=== PATIENT | male | born 1990 | race Caucasian/White ===

== ENCOUNTER 2017-02-15 22:47 | Emergency (ER) | payer OTHER ==
[2017-02-15] MEDS ORDERED: Ondansetron INJ* 2 MG/ML VIAL IV ONE (23:45)
[2017-02-15] MEDS ORDERED: NS 0.9% 1000 ML* 1,000 ML IV ONE (23:45)
[2017-02-15] MEDS ORDERED: Ketorolac INJ* 30 MG/ML 1 ML VIAL IV PUSH ONE (23:51)
--- NOTE | 2017-02-16 00:01 | ED ---
GI/ HPI - HPI Summary HPI Summary: 26M presents with n/v/d today. He states that is started at 1pm today with nausea. He states shortly after he develop diarrhea. He has tried pedialyte without relief. He has generalized abdominal pain. He denies anyone else being sick. He denies any recent antibiotic usage. He states his stool is mostly watery. He denies any cough, sore throat, or sinus congestion. He denies eating anything different. no blood in his stool. He denies any fever. He denies any dysuria, hematuria, urgency, or frequency. He has not taken anything for pain. He states that he feels dehydrated. He denies any previous abdominal surgeries. - History of Current Complaint Chief Complaint: EDNauseaVomitDiarrh Time Seen by Provider: 02/15/17 23:45 Stated Complaint: VOMITING/DIARRHEA Pain Intensity: 7 - Allergy/Home Medications Allergies/Adverse Reactions: Allergies Allergy/AdvReac Type Severity Reaction Status Date / Time No Known Allergies Allergy Verified 02/15/17 22:53 PMH/Surg Hx/FS Hx/Imm Hx Endocrine/Hematology History: Denies: Hx Anticoagulant Therapy Cardiovascular History: Denies: Hx Hypertension Infectious Disease History: No Infectious Disease History: Denies: Traveled Outside the [place] in Last 30 Days - Family History Known Family History: Negative: Diabetes Review of Systems Negative: Fever Negative: Chest Pain Negative: Shortness Of Breath Positive: Abdominal Pain, Vomiting, Diarrhea, Nausea All Other Systems Reviewed And Are Negative: Yes Physical Exam Triage Information Reviewed: Yes Vital Signs On Initial Exam: Initial Vitals Temp Pulse Resp BP Pulse Ox 97.6 F 92 16 145/74 99 02/15/17 22:50 02/15/17 22:50 02/15/17 22:50 02/15/17 22:50 02/15/17 22:50 Vital Signs Reviewed: Yes Appearance: Positive: Well-Appearing Skin: Positive: Warm, Dry Head/Face: Positive: Normal Head/Face Inspection Eyes: Positive: Normal, EOMI, GILBERTO, Conjunctiva Clear ENT: Positive: Normal ENT inspection, Pharynx normal, TMs normal Respiratory/Lung Sounds: Positive: Clear to Auscultation, Breath Sounds Present Cardiovascular: Positive: Normal, RRR Abdomen Description: Positive: Soft, Other: - mild diffuse tenderness Bowel Sounds: Positive: Present Musculoskeletal: Positive: Normal Neurological: Positive: Normal Psychiatric: Positive: Normal Diagnostics - Vital Signs Vital Signs Temp Pulse Resp BP Pulse Ox 02/15/17 22:50 97.6 F 92 16 145/74 99 - Laboratory Result Diagrams: 02/16/17 00:10 02/16/17 00:10 Lab Statement: Any lab studies that have been ordered have been reviewed, and results considered in the medical decision making process. Re-Evaluation - Re-Evaluation First Eval Re-Evaluation Time: 01:04 Change: Improved Comment: feeling better after liter of fluids and zofran and toradol. will give another liter as still nauseous GIGU Course/Dx - Course Course Of Treatment: 26M presents with n/v/d today. He states that is started at 1pm today with nausea. He states shortly after he develop diarrhea. He has tried pedialyte without relief. He has generalized abdominal pain. He denies anyone else being sick. He denies any recent antibiotic usage. He states his stool is mostly watery. He denies any cough, sore throat, or sinus congestion. He denies eating anything different. no blood in his stool. He denies any fever. He has not taken anything for pain. He states that he feels dehydrated. on exam has diffuse abdominal tenderness mild. labs wbc 14. crp normal. bilirubin elevated but LFT normal. on reexam feeling better and abdomen soft nontender. will discharge with zofran. patient understand and agrees with plan. - Diagnoses Differential Diagnoses - Male: Gastroenteritis (Bacterial), Gastroenteritis ( Viral), Urinary Tract Infection Provider Diagnoses: Abdominal pain, Nausea vomiting and diarrhea Discharge - Discharge Plan Condition: Good Disposition: HOME Prescriptions: Ondansetron ODT TAB* [Zofran 4 MG Odt TAB*] 4 mg PO Q6H PRN #20 tab.odt PRN Reason: Nausea Patient Education Materials: Acute Nausea and Vomiting (ED) Referrals: [facility] – [place] [facility] REFERRAL [Outside] Additional Instructions: Can take Zofran every 6 hours as needed for nausea Drink small amounts of fluid as tolerated When able to eat follow BRAT diet: Bananas, rice, applesauce, toast Take ibuprofen or Tylenol for pain as needed every 6 hours Follow up with primary within 5 days Return to ED if develop fever that does not respond to Tylenol or ibuprofen, severe abdominal pain, or any new or worsening symptoms
[2017-02-16 00:34] LABS: ABS Basophils 0 10^3/ul (0-0.2); ABS Eosinophils 0 10^3/ul (0-0.6); ABS Lymphocytes 0.7 10^3/ul (1.0-4.8); ABS Monocytes 0.3 10^3/ul (0-0.8); ABS Neutrophils 13.4 10^3/ul (1.5-7.7); ABS Nucleated RBC 0 10^3/ul; Eosinophil % 0 % (0-6); Hematocrit 46 % (42-52); Hemoglobin 15.8 g/dl (14.0-18.0); Lymphocyte % 4.9 % (25-47); Mean Corpuscular HGB Conc 34 g/dl (31-36); Mean Corpuscular Hemoglobin 30 pg (27-31); Mean Corpuscular Volume 88 fL (80-94); Mean Platelet Volume 9 um3 (7.4-10.4); Nucleated Red Blood Cells % 0; Platelet Count 181 10^3/ul (150-450); Red Blood Count 5.26 10^6/ul (4.0-5.4); Red Cell Distribution Width 13 % (10.5-15); White Blood Count 14.4 10^3/ul (3.5-10.8)
[2017-02-16] MEDS ORDERED: O ndansetron ODT 4MG 2TAB PRPK 4 MG PAK PO ONE (01:01)
[2017-02-16] MEDS ORDERED: NS 0.9% 1000 ML* 1,000 ML IV ONE (01:01)
[2017-02-16 01:56] LABS: Urine Appearance Cloudy; Urine Blood Negative (Negative); Urine Color Yellow; Urine Ketones 2+ (Negative); Urine Protein 2+(100 mg/dL) (Negative); Urine Specific Gravity 1.031 (1.010-1.030); Urine Urobilinogen Negative (Negative)
[2017-02-16 04:01] VITALS: BP 123/86
== END 2017-02-16 04:01 | disposition home or self-care (01) ==
LOC: ED 22:47
DX: R11.2 Nausea with vomiting, unspecified (principal); R10.9 Unspecified abdominal pain; R19.7 Diarrhea, unspecified
CPT/HCPCS: 36415; 80053; 81003; 81015; 83690; 85025; 86141; 96361; 96374; 96375; 99283; J1885; J2405

== ENCOUNTER 2017-07-21 12:32 | Emergency (ER) | payer OTHER ==
[2017-07-21] MEDS ORDERED: Ondansetron ODT TAB* 4 MG PO ONE (12:46)
[2017-07-21] MEDS ORDERED: Ondansetron ODT TAB* 4 MG ONE (12:47)
[2017-07-21 13:48] LABS: ABS Basophils 0 10^3/ul (0-0.2); ABS Eosinophils 0 10^3/ul (0-0.6); ABS Lymphocytes 0.7 10^3/ul (1.0-4.8); ABS Monocytes 0.4 10^3/ul (0-0.8); ABS Neutrophils 10.4 10^3/ul (1.5-7.7); ABS Nucleated RBC 0 10^3/ul; Eosinophil % 0 % (0-6); Hematocrit 48 % (42-52); Hemoglobin 16.5 g/dl (14.0-18.0); Lymphocyte % 6.1 % (25-47); Mean Corpuscular HGB Conc 34 g/dl (31-36); Mean Corpuscular Hemoglobin 30 pg (27-31); Mean Corpuscular Volume 88 fL (80-94); Mean Platelet Volume 9.8 um3 (7.4-10.4); Nucleated Red Blood Cells % 0; Platelet Count 177 10^3/ul (150-450); Red Blood Count 5.49 10^6/ul (4.0-5.4); Red Cell Distribution Width 13 % (10.5-15); White Blood Count 11.4 10^3/ul (3.5-10.8)
[2017-07-21 13:56] LABS: INR 0.98 (0.77-1.02)
[2017-07-21 14:04] LABS: EGFR Non-African American 82.4 (>60)
[2017-07-21] MEDS ORDERED: Metoclopramide IV* 5 MG/ML 2 ML VIAL IV ONE (14:43)
[2017-07-21] MEDS ORDERED: NS 0.9% 1000 ML* 2,000 ML IV ONE (14:47)
[2017-07-21] MEDS ORDERED: Pantoprazole IV* 40 MG IV ONE (14:48)
[2017-07-21] MEDS ORDERED: Ketorolac INJ* 30 MG/ML 1 ML VIAL IV PUSH ONE (14:48)
[2017-07-21] MEDS ORDERED: Iohexol 300* (CONTRAST) 10 ML SDV IV SCH (14:59)
[2017-07-21 15:28] LABS: Urine Appearance Cloudy; Urine Blood 1+ (Negative); Urine Color Yellow; Urine Ketones Trace (Negative); Urine Protein 1+(30 mg/dL) (Negative); Urine Specific Gravity 1.025 (1.010-1.030); Urine Urobilinogen Negative (Negative)
--- NOTE | 2017-07-21 16:29 | RAD ---
HISTORY: Right upper quadrant pain and elevated T bilirubin COMPARISONS: None TECHNIQUE: Multiple transverse and longitudinal ultrasound images were obtained of the right upper quadrant. FINDINGS: LIVER: The liver is normal in dimensions and echogenicity. Normal hepatic and portal venous blood flow is duplicated with color flow imaging. There is no gross intrahepatic biliary duct dilatation. GALLBLADDER AND EXTRAHEPATIC BILIARY DUCT: The gallbladder is normal in appearance without intraluminal stones or other soft tissue masses. There is no pericholecystic fluid or gallbladder wall thickening. The common bile duct measures a maximum diameter of 3 mm. PANCREAS: The portions of the pancreas not obscured by bowel gas are normal in appearance. RIGHT KIDNEY: The right kidney is normal in size, morphology and echogenicity. AORTA AND IVC: The visualized portions are normal in appearance and not pathologically dilated. IMPRESSION: Normal ultrasound of the right upper quadrant.
--- NOTE | 2017-07-21 17:10 | RAD ---
INDICATION: Periumbilical abdominal pain. Abdominal pain and diarrhea. COMPARISON: July 21, 2017 RIGHT upper quadrant ultrasound. TECHNIQUE: Multidetector CT images were obtained from the lung bases to the ischial tuberosities with 85 mL Omnipaque 300 IV and oral contrast. Multiplanar reformation. REPORT: Unremarkable visualized inferior thorax. Focal region of fatty infiltration of the LEFT medial hepatic segment without concern. No CT abnormality of the gallbladder, pancreas, spleen. Negative for CT abnormality of the upper GI, small bowel, or medially directed appendix. Unremarkable colon. Negative for ascites, free air, hernias. Normal adrenal glands. Small hypodense renal cortical lesions most consistent with benign cysts although too small to definitively characterize. No suspicious focal renal lesions or hydronephrosis. Symmetric nephrograms and pyelograms. Unremarkable nondilated ureters and partially distended urinary bladder. Unremarkable visualized male urogenital structures. Negative for lymphadenopathy. Normal diameter abdominal aorta and iliac arteries. Physiologic distention of the IVC. Negative for suspicious osseous lesions. IMPRESSION: Normal appendix documented. No acute abdominal pelvic pathologic process evident.
[2017-07-21] MEDS ORDERED: Ondansetron INJ* 2 MG/ML VIAL IV ONE (17:26)
[2017-07-21] MEDS ORDERED: Hyoscyamine TAB* 0.125 MG PO ONE (19:53)
[2017-07-21] MEDS ORDERED: oxyCODONE/Acetamin 5/325 MG* TAB PO ONE (19:54)
[2017-07-21 20:35] VITALS: BP 148/74
--- NOTE | 2017-07-22 00:28 | ED ---
Nely Wilkerson Emily, scribed for Carolina Martinez MD on 07/21/17 at 1504 . GI/ HPI - HPI Summary HPI Summary: This patient is a 26 year old M presenting to [facility] with a chief complaint of sudden vomiting (with "chunks that look like skin) that began on 07/19/2017 at 0400. The patient reports that the symptoms worsened by two times this morning. The patient rates the pain 7/10 in severity. Symptoms aggravated by nothing. Symptoms alleviated by nothing. Patient reports central abd pain, nausea, watery diarrhea (yellow-brown), and rash on chest (from heating pad). Patient denies hematuria and hematochezia. - History of Current Complaint Chief Complaint: EDNauseaVomitDiarrh Time Seen by Provider: 07/21/17 12:46 Stated Complaint: DEHYDRATION Hx Obtained From: Patient Onset/Duration: Started Days Ago, Still Present, Worse Since - This morning Severity: Moderate Current Severity: Moderate Pain Intensity: 7 Associated Signs and Symptoms: Positive: Other: - Positive central abd pain, nausea, watery diarrhea (yellow-brown), and rash on chest (from heating pad). Negative hematuria and hematochezia. Aggravating Factor(s): Nothing Alleviating Factor(s): Nothing - Allergy/Home Medications Allergies/Adverse Reactions: Allergies Allergy/AdvReac Type Severity Reaction Status Date / Time No Known Allergies Allergy Verified 07/21/17 12:41 PMH/Surg Hx/FS Hx/Imm Hx Previously Healthy: Yes Endocrine/Hematology History: Denies: Hx Anticoagulant Therapy, Hx Diabetes Cardiovascular History: Denies: Hx Hypertension - Surgical History Surgery Procedure, Year, and Place: tonsillectomy, labrum repair Hx Anesthesia Reactions: No Infectious Disease History: No Infectious Disease History: Denies: Traveled Outside the [place] in Last 30 Days - Family History Known Family History: Positive: Hypertension, Diabetes, Other - Negative gallbladder issues - Social History Occupation: Employed Full-time Lives: With Family Alcohol Use: None Hx Substance Use: No Substance Use Type: Reports: None Hx Tobacco Use: No Smoking Status (MU): Never Smoked Tobacco Review of Systems Positive: Abdominal Pain, Vomiting, Diarrhea, Nausea, Other - Negative hematochezia Negative: hematuria Positive: Rash All Other Systems Reviewed And Are Negative: Yes Physical Exam - Summary Physical Exam Summary: Appearance: ill-appearing, sever pain distress, thin Skin: Warm, slightly jaundiced, dry, faint macular erythematous rash on chest which patient attributes to heating pad Head: Normal Head/Face inspection, atraumatic Eyes: Conjunctiva clear, slightly jaundiced ENT: mucous membranes dry Neck: Supple, no nodes, no JVD Respiratory: Lungs clear, normal breath sounds, no respiratory distress Cardio: RRR, No murmur, pulses normal, brisk capillary refill Abdomen: Soft, tender RUQ and epigastrium, no guarding, no rebound, no masses Bowel sounds: Present Musculoskeletal: Strength Intact/ROM intact, no calf tenderness, no edema. Psychological: Normal Neuro: Alert, muscle tone normal, no focal deficit Triage Information Reviewed: Yes Vital Signs On Initial Exam: Initial Vitals Temp Pulse Resp BP Pulse Ox 97.1 F 83 20 152/67 98 07/21/17 12:41 07/21/17 12:41 07/21/17 12:41 07/21/17 12:41 07/21/17 12:41 Vital Signs Reviewed: Yes Diagnostics - Vital Signs Vital Signs Temp Pulse Resp BP Pulse Ox 07/21/17 12:41 97.1 F 83 20 152/67 98 - Laboratory Lab Results: Lab Results 07/21/17 07/21/17 07/21/17 Range/Units 13:42 13:42 13:42 WBC 11.4 H (3.5-10.8) 10^3/ul RBC 5.49 H (4.0-5.4) 10^6/ul Hgb 16.5 (14.0-18.0) g/dl Hct 48 (42-52) % MCV 88 (80-94) fL MCH 30 (27-31) pg MCHC 34 (31-36) g/dl RDW 13 (10.5-15) % Plt Count 177 (150-450) 10^3/ul MPV 9.8 (7.4-10.4) um3 Neut % (Auto) 90.5 H (38-83) % Lymph % (Auto) 6.1 L (25-47) % Jerauld % (Auto) 3.2 (0-7) % Eos % (Auto) 0 (0-6) % Baso % (Auto) 0.2 (0-2) % Absolute Neuts (auto) 10.4 H (1.5-7.7) 10^3/ul Absolute Lymphs (auto) 0.7 L (1.0-4.8) 10^3/ul Absolute Monos (auto) 0.4 (0-0.8) 10^3/ul Absolute Eos (auto) 0 (0-0.6) 10^3/ul Absolute Basos (auto) 0 (0-0.2) 10^3/ul Absolute Nucleated RBC 0 10^3/ul Nucleated RBC % 0 INR (Anticoag Therapy) 0.98 (0.77-1.02) APTT 31.2 (26.0-36.3) seconds Sodium 137 L (139-145) mmol/L Potassium 3.5 (3.5-5.0) mmol/L Chloride 96 L (101-111) mmol/L Carbon Dioxide 30 (22-32) mmol/L Anion Gap 11 (2-11) mmol/L BUN 19 (6-24) mg/dL Creatinine 1.09 (0.67-1.17) mg/dL Est GFR ( Amer) 106.0 (>60) Est GFR (Non-Af Amer) 82.4 (>60) BUN/Creatinine Ratio 17.4 (8-20) Glucose 129 H (70-100) mg/dL Lactic Acid (0.5-2.0) mmol/L Calcium 10.3 (8.6-10.3) mg/dL Magnesium 2.2 (1.9-2.7) mg/dL Total Bilirubin 3.50 H (0.2-1.0) mg/dL AST 19 (13-39) U/L ALT 22 (7-52) U/L Alkaline Phosphatase 57 (34-104) U/L Total Creatine Kinase 81 (10-223) U/L C-Reactive Protein 1.96 (< 5.00) mg/L Total Protein 8.1 (6.4-8.9) g/dL Albumin 5.1 (3.2-5.2) g/dL Globulin 3.0 (2-4) g/dL Albumin/Globulin Ratio 1.7 (1-3) Amylase 54 (29-103) U/L Lipase < 10 L (11.0-82.0) U/L 07/21/17 Range/Units 13:42 WBC (3.5-10.8) 10^3/ul RBC (4.0-5.4) 10^6/ul Hgb (14.0-18.0) g/dl Hct (42-52) % MCV (80-94) fL MCH (27-31) pg MCHC (31-36) g/dl RDW (10.5-15) % Plt Count (150-450) 10^3/ul MPV (7.4-10.4) um3 Neut % (Auto) (38-83) % Lymph % (Auto) (25-47) % Jerauld % (Auto) (0-7) % Eos % (Auto) (0-6) % Baso % (Auto) (0-2) % Absolute Neuts (auto) (1.5-7.7) 10^3/ul Absolute Lymphs (auto) (1.0-4.8) 10^3/ul Absolute Monos (auto) (0-0.8) 10^3/ul Absolute Eos (auto) (0-0.6) 10^3/ul Absolute Basos (auto) (0-0.2) 10^3/ul Absolute Nucleated RBC 10^3/ul Nucleated RBC % INR (Anticoag Therapy) (0.77-1.02) APTT (26.0-36.3) seconds Sodium (139-145) mmol/L Potassium (3.5-5.0) mmol/L Chloride (101-111) mmol/L Carbon Dioxide (22-32) mmol/L Anion Gap (2-11) mmol/L BUN (6-24) mg/dL Creatinine (0.67-1.17) mg/dL Est GFR ( Amer) (>60) Est GFR (Non-Af Amer) (>60) BUN/Creatinine Ratio (8-20) Glucose (70-100) mg/dL Lactic Acid 1.6 (0.5-2.0) mmol/L Calcium (8.6-10.3) mg/dL Magnesium (1.9-2.7) mg/dL Total Bilirubin (0.2-1.0) mg/dL AST (13-39) U/L ALT (7-52) U/L Alkaline Phosphatase (34-104) U/L Total Creatine Kinase (10-223) U/L C-Reactive Protein (< 5.00) mg/L Total Protein (6.4-8.9) g/dL Albumin (3.2-5.2) g/dL Globulin (2-4) g/dL Albumin/Globulin Ratio (1-3) Amylase (29-103) U/L Lipase (11.0-82.0) U/L Result Diagrams: 07/21/17 13:42 07/21/17 13:42 Lab Statement: Any lab studies that have been ordered have been reviewed, and results considered in the medical decision making process. - CT Abdomen/Pelvis CT CT Interpretation Completed By: Radiologist - Abdomen/Pelvis CT reveals, per radiologist, normal appendix documented. No acute abdominal pelvic pathologic process evident. ED physician has reviewed this radiology report. - Additional Comments Diagnostic Additional Comments: Gallbladder US reveals, per radiologist, normal ultrasound of the right upper quadrant. ED physician has reviewed this radiology report. Re-Evaluation - Re-Evaluation First Eval Re-Evaluation Time: 17:35 Change: Unchanged Comment: Pt is ambulatory to the bathroom, and feels like he is goint to have diarrhea. Second Eval Re-Evaluation Time: 18:02 Change: Improved Comment: Pt reports that he feels improved, but is still slightly nauseous. He is willing to try josie crackers and thomas emmie. GIGU Course/Dx - Course Course Of Treatment: This patient is a 26 year old M presenting to [facility] with a chief complaint of sudden vomiting (with "chunks that look like skin) that began on 07/19/2017 at 0400. In the ED, the patient recieved IV fluids, Zofran and Reglan for nausea, IV toradol for pain, and protonix for possible gastritis. Evaluating with ultrasound and CT for the elevated bilirubin and the pain. Bloodwork and UA obtained. Gallbladder US reveals, per radiologist, normal ultrasound of the right upper quadrant. Abdomen/Pelvis CT reveals, per radiologist, normal appendix documented. No acute abdominal pelvic pathologic process evident. The patient will be discharged home with follow up from PCP. The patient is agreeable with this plan. - Diagnoses Differential Diagnoses - Male: Diarrhea, Enterocolitis, Gastritis, Gastroenteritis (Bacterial), Gastroenteritis (Viral) Provider Diagnoses: Diarrhea, Total bilirubin, elevated, Abdominal pain in male, Occult blood positive stool Discharge - Discharge Plan Condition: Stable Disposition: HOME Prescriptions: Hyoscyamine TAB* [Anaspaz 0.125 MG TAB*] 0.125 mg PO Q6H PRN #20 tab PRN Reason: cramps Ondansetron TAB* [Zofran 4 MG Tab*] 8 mg PO Q6H PRN #12 tab PRN Reason: Nausea Patient Education Materials: Gastritis (ED), Acute Diarrhea (ED), Acute Abdominal Pain (ED), Jaundice (ED) Forms: *Work Release Referrals: [facility] [place] [facility] REFERRAL [Outside] Additional Instructions: We are referring you to the [facility]. Please call [phone] to get an appointment to be seen. You were given medications for nausea and pain while you were in the ER. And you were given IV hydration. Your CT scan with oral and IV contrast, and the Ultrasound of your gallbladder did not show any cause for your pain. You may have gastritis, or gastroenteritis. You will need definite follow up, especially because your bilirubin (measure of jaundice) is elevated. This can be a congenital condition, called Gilbert's syndrome. And the bilirubin was elevated in the past. But this needs to be further evaluated. You have hepatitis labs pending and stool studies pending. We will contact you if you need further treatment based on these results. Call Dr. Martinez in the ER tomorrow 07-22-17 between 7am and 7pm: [phone]. Return to the ER if you have any new or worsening symptoms. - Billing Disposition and Condition Condition: STABLE Disposition: Home The documentation as recorded by the Nely olmstead Emily accurately reflects the service I personally performed and the decisions made by me, Carolina Martinez MD.
--- NOTE | 2017-07-23 07:07 | ED ---
Progress - Progress Note Progress Note: Positive for occult blood. Patient presented with diarrhea and diagnosed with gastroenteritis. H&H of vitals were stable. Re-Evaluation - Re-Evaluation First Eval Re-Evaluation Time: 17:35 Change: Unchanged Comment: Pt is ambulatory to the bathroom, and feels like he is goint to have diarrhea. Second Eval Re-Evaluation Time: 18:02 Change: Improved Comment: Pt reports that he feels improved, but is still slightly nauseous. He is willing to try josie crackers and thomas emmie. Course/Dx - Course Course Of Treatment: This patient is a 26 year old M presenting to [facility] with a chief complaint of sudden vomiting (with "chunks that look like skin) that began on 07/19/2017 at 0400. In the ED, the patient recieved IV fluids, Zofran and Reglan for nausea, IV toradol for pain, and protonix for possible gastritis. Evaluating with ultrasound and CT for the elevated bilirubin and the pain. Bloodwork and UA obtained. Gallbladder US reveals, per radiologist, normal ultrasound of the right upper quadrant. Abdomen/Pelvis CT reveals, per radiologist, normal appendix documented. No acute abdominal pelvic pathologic process evident. The patient will be discharged home with follow up from PCP. The patient is agreeable with this plan. - Diagnoses Provider Diagnoses: Diarrhea, Total bilirubin, elevated, Abdominal pain in male, Occult blood positive stool Discharge - Sign-Out/Discharge Documenting (check all that apply): Post-Discharge Follow Up - Discharge Plan Condition: Stable Disposition: HOME Prescriptions: Hyoscyamine TAB* [Anaspaz 0.125 MG TAB*] 0.125 mg PO Q6H PRN #20 tab PRN Reason: cramps Ondansetron TAB* [Zofran 4 MG Tab*] 8 mg PO Q6H PRN #12 tab PRN Reason: Nausea Patient Education Materials: Gastritis (ED), Acute Diarrhea (ED), Acute Abdominal Pain (ED), Jaundice (ED) Forms: *Work Release Referrals: [facility] – [place] PH[facility]IAN REFERRAL [Outside] Additional Instructions: We are referring you to the [facility]. Please call [phone] to get an appointment to be seen. You were given medications for nausea and pain while you were in the ER. And you were given IV hydration. Your CT scan with oral and IV contrast, and the Ultrasound of your gallbladder did not show any cause for your pain. You may have gastritis, or gastroenteritis. You will need definite follow up, especially because your bilirubin (measure of jaundice) is elevated. This can be a congenital condition, called Gilbert's syndrome. And the bilirubin was elevated in the past. But this needs to be further evaluated. You have hepatitis labs pending and stool studies pending. We will contact you if you need further treatment based on these results. Call Dr. Martinez in the ER tomorrow 07-22-17 between 7am and 7pm: [phone]. Return to the ER if you have any new or worsening symptoms. - Billing Disposition and Condition Condition: STABLE Disposition: Home
--- NOTE | 2017-07-23 18:35 | PN ---
Progress Note - Progress Note Date of Service: 07/23/17 Note: patient stool negative for c diff and rotavirus
== END 2017-07-21 20:32 | disposition home or self-care (01) ==
LOC: ED 12:32
DX: R11.10 Vomiting, unspecified (principal); R10.11 Right upper quadrant pain; R19.7 Diarrhea, unspecified; E80.7 Disorder of bilirubin metabolism, unspecified; R19.5 Other fecal abnormalities
CPT/HCPCS: 36415; 74177; 76705; 80053; 80074; 81003; 81015; 82150; 82272; 82550; 83605; 83690; 83735; 85025; 85610; 85730; 86140; 87045; 87046; 87086; 87328; 87329; 87425; 87449; 87493; 87899; 96361; 96365; 96366; 96367; 96375; 99283; A9270-GY; J1885; J2765; Q9967

== ENCOUNTER 2017-11-13 18:23 | Emergency (ER) | payer OTHER ==
[2017-11-13 20:01] LABS: ABS Basophils 0 10^3/ul (0-0.2); ABS Eosinophils 0 10^3/ul (0-0.6); ABS Lymphocytes 1.5 10^3/ul (1.0-4.8); ABS Monocytes 0.6 10^3/ul (0-0.8); ABS Nucleated RBC 0 10^3/ul; Eosinophil % 0.3 % (0-6); Hematocrit 48 % (42-52); Hemoglobin 16.8 g/dl (14.0-18.0); Lymphocyte % 20.8 % (25-47); Mean Corpuscular HGB Conc 35 g/dl (31-36); Mean Corpuscular Hemoglobin 30 pg (27-31); Mean Corpuscular Volume 86 fL (80-94); Mean Platelet Volume 9.2 um3 (7.4-10.4); Nucleated Red Blood Cells % 0.4; Platelet Count 218 10^3/ul (150-450); Red Blood Count 5.56 10^6/ul (4.00-5.40); Red Cell Distribution Width 13 % (10.5-15); White Blood Count 7.1 10^3/ul (3.5-10.8)
[2017-11-13 20:19] LABS: EGFR Non-African American 94.7 (>60)
[2017-11-13] MEDS ORDERED: Morphine INJ* 4 MG/ML 1 ML SYRINGE (NEW SYRINGE VERSION) IV ONE (20:50)
[2017-11-13] MEDS ORDERED: Metoclopramide IV* 5 MG/ML 2 ML VIAL IV SLOW PU ONE (20:50)
[2017-11-13] MEDS ORDERED: NS 0.9% 1000 ML* 1,000 ML IV ONE (20:50)
[2017-11-13] MEDS ORDERED: Acetaminophen TAB* 325 MG PO ONE (20:51)
--- NOTE | 2017-11-13 20:57 | ED ---
Abdominal Pain/Male - HPI Summary HPI Summary: This patient is a 27 year old M presenting to [facility] with a chief complaint of abd pain since 11/08. He endorses N/V/D. He says the sx are cyclical, the more I vomit the worse the pain gets, and the worse the pain gets more I vomit. He denies diarrhea, BM, or emesis on 11/11-11/12/17, but all sx have returned today. He denies abd SHx. - History of Current Complaint Chief Complaint: EDAbdPain Stated Complaint: SEVERE ABD PAIN/DIZZINESS/VOMITTING/NAUSEA Time Seen by Provider: 11/13/17 20:43 Hx Obtained From: Patient Onset/Duration: Lasting Days, Still Present Timing: Intermittent - 2 days on, 2 days off, 1 day on Severity Initially: Moderate Severity Currently: Moderate Pain Intensity: 6 Pain Scale Used: 0-10 Numeric Radiates: No Aggravating Factor(s): Nothing Alleviating Factor(s): Nothing Associated Signs And Symptoms: Positive: Decreased Appetite, Nausea, Vomiting, Diarrhea - Allergies/Home Medications Allergies/Adverse Reactions: Allergies Allergy/AdvReac Type Severity Reaction Status Date / Time No Known Allergies Allergy Verified 11/13/17 18:43 PMH/Surg Hx/FS Hx/Imm Hx Endocrine/Hematology History: Denies: Hx Anticoagulant Therapy, Hx Diabetes Cardiovascular History: Denies: Hx Hypertension GI History: Denies: Hx Ileostomy History: Denies: Hx Dialysis Musculoskeletal History: Reports: Hx Orthopedic Injury - torn labrum Sensory History: Denies: Hx Legally Blind, Hx Deafness Opthamlomology History: Denies: Hx Legally Blind EENT History: Denies: Hx Deafness Neurological History: Denies: Hx Dementia Psychiatric History: Denies: Hx Schizophrenia - Surgical History Surgery Procedure, Year, and Place: tonsillectomy, labrum repair Hx Anesthesia Reactions: No Infectious Disease History: No Infectious Disease History: Denies: Traveled Outside the [place] in Last 30 Days - Family History Known Family History: Positive: Hypertension, Diabetes, Other - Negative gallbladder issues - Social History Occupation: Employed Full-time Lives: With Family Alcohol Use: None Hx Substance Use: No Substance Use Type: Reports: None Hx Tobacco Use: No Smoking Status (MU): Never Smoked Tobacco Review of Systems Positive: Abdominal Pain, Vomiting, Diarrhea, Nausea Positive: no symptoms reported All Other Systems Reviewed And Are Negative: Yes Physical Exam - Summary Physical Exam Summary: VITAL SIGNS: Reviewed. GENERAL: Patient is a well-developed and nourished male who is lying comfortable in the stretcher. Patient is not in any acute respiratory distress. HEAD AND FACE: No signs of trauma. No ecchymosis, hematomas or skull depressions. No sinus tenderness. EYES: PERRLA, EOMI x 2, No injected conjunctiva, no nystagmus. EARS: Hearing grossly intact. Ear canals and tympanic membranes are within normal limits. MOUTH: Oropharynx within normal limits. NECK: Supple, trachea is midline, no adenopathy, no JVD, no carotid bruit, no c- spine tenderness, neck with full ROM. CHEST: Symmetric, no tenderness at palpation LUNGS: Clear to auscultation bilaterally. No wheezing or crackles. CVS: Regular rate and rhythm, S1 and S2 present, no murmurs or gallops appreciated. ABDOMEN: Soft, non-tender. No signs of distention. No rebound no guarding, and no masses palpated. Hyperactive bowel sounds. EXTREMITIES: FROM in all major joints, no edema, no cyanosis or clubbing. NEURO: Alert and oriented x 3. No acute neurological deficits. Speech is normal and follows commands. SKIN: Dry and warm Triage Information Reviewed: Yes Vital Signs On Initial Exam: Initial Vitals Temp Pulse Resp BP Pulse Ox 99.8 F 85 22 135/80 98 11/13/17 18:40 11/13/17 18:40 11/13/17 18:40 11/13/17 18:40 11/13/17 18:40 Vital Signs Reviewed: Yes Diagnostics - Vital Signs Vital Signs Temp Pulse Resp BP Pulse Ox 11/13/17 18:40 99.8 F 85 22 135/80 98 - Laboratory Lab Results: Lab Results 11/13/17 11/13/17 11/13/17 Range/Units 19:28 19:28 19:28 WBC 7.1 (3.5-10.8) 10^3/ul RBC 5.56 H (4.00-5.40) 10^6/ul Hgb 16.8 (14.0-18.0) g/dl Hct 48 (42-52) % MCV 86 (80-94) fL MCH 30 (27-31) pg MCHC 35 (31-36) g/dl RDW 13 (10.5-15) % Plt Count 218 (150-450) 10^3/ul MPV 9.2 (7.4-10.4) um3 Neut % (Auto) 70.2 (38-83) % Lymph % (Auto) 20.8 L (25-47) % [place] % (Auto) 8.4 H (0-7) % Eos % (Auto) 0.3 (0-6) % Baso % (Auto) 0.3 (0-2) % Absolute Neuts (auto) 5.0 (1.5-7.7) 10^3/ul Absolute Lymphs (auto) 1.5 (1.0-4.8) 10^3/ul Absolute Monos (auto) 0.6 (0-0.8) 10^3/ul Absolute Eos (auto) 0 (0-0.6) 10^3/ul Absolute Basos (auto) 0 (0-0.2) 10^3/ul Absolute Nucleated RBC 0 10^3/ul Nucleated RBC % 0.4 Sodium 136 (135-145) mmol/L Potassium 3.5 (3.5-5.0) mmol/L Chloride 97 L (101-111) mmol/L Carbon Dioxide 28 (22-32) mmol/L Anion Gap 11 (2-11) mmol/L BUN 16 (6-24) mg/dL Creatinine 0.96 (0.67-1.17) mg/dL Est GFR ( Amer) 114.6 (>60) Est GFR (Non-Af Amer) 94.7 (>60) BUN/Creatinine Ratio 16.7 (8-20) Glucose 99 (70-100) mg/dL Lactic Acid 0.7 (0.5-2.0) mmol/L Calcium 9.9 (8.6-10.3) mg/dL Total Bilirubin 5.50 H (0.2-1.0) mg/dL AST 14 (13-39) U/L ALT 15 (7-52) U/L Alkaline Phosphatase 52 (34-104) U/L C-Reactive Protein < 1.00 (<8.01) mg/L Total Protein 7.5 (6.4-8.9) g/dL Albumin 4.9 (3.2-5.2) g/dL Globulin 2.6 (2-4) g/dL Albumin/Globulin Ratio 1.9 (1-3) Lipase < 10 L (11.0-82.0) U/L Result Diagrams: 11/13/17 19:28 11/13/17 19:28 Lab Statement: Any lab studies that have been ordered have been reviewed, and results considered in the medical decision making process. Re-Evaluation - Re-Evaluation First Eval Re-Evaluation Time: 22:08 Change: Improved Comment: Sx improved s/p ED tx. Abdominal Pain Fem Course/Dx - Course Course Of Treatment: A 27-year-old M presents to the ED with a CC of abd pain for 5 days. (+) N/V/D. No BM or emesis the past 2 days, but sx have returned today. In the ED course,the pt was given nl saline, tylenol, reglan, and morphine. Pt labs show abnl lymph and mono%, RBC, bilirubin, Cl-, and lipase levels. Pt's mother spoke to me, explained the pt has had these sx for over 1 year and has not seen a GE yet. Sx improved s/p ED tx. - Diagnoses Provider Diagnoses: Gastroenteritis Discharge - Sign-Out/Discharge Documenting (check all that apply): Patient Departure - discharge - Discharge Plan Condition: Stable Disposition: HOME Prescriptions: Metoclopramide TAB* [Reglan TAB*] 10 mg PO Q6H PRN #20 tab PRN Reason: Nausea/Vomiting Patient Education Materials: Gastroenteritis (ED) Referrals: [facility] [Outside] Isaac Short DO [Doctor of Osteopathy] - Additional Instructions: Return to the emergency department for any new or worsening symptoms. Follow up with your primary care provider (info provided if you do not have one ) and a weed eradicator (info provided) in 1-2 days. - Attestation Statements Document Initiated by Scribe: Yes Documenting Scribe: Castillo Matos Provider For Whom Ysabelibangelique is Documenting (Include Credential): Dr. Derick Moreno MD Scribe Attestation: Castillo Wilkerson, scribed for Dr. Derick Moreno MD on 11/13/17 at 2207.
[2017-11-13 22:53] VITALS: BP 123/88
== END 2017-11-13 23:00 | disposition home or self-care (01) ==
LOC: ED 18:23
DX: K52.9 Noninfective gastroenteritis and colitis, unspecified (principal)
CPT/HCPCS: 36415; 80053; 83605; 83690; 85025; 86140; 96374; 96375; 99283; A9270-GY; J2270; J2765

== ENCOUNTER 2018-09-29 12:46 | Emergency (ER) | payer OTHER ==
[2018-09-29] MEDS ORDERED: Ibuprofen TAB* 600 MG PO ONE (13:58)
[2018-09-29 14:21] VITALS: BP 125/64
--- NOTE | 2018-09-30 07:00 | ED ---
Upper Extremity Pain - HPI Summary HPI Summary: Patient is a 28-year-old male who presents emergency department for right shoulder injury that occurred today. Patient notes he has a remote history of recurrent right shoulder dislocation. He states he had surgery about 8 years ago and has had no issues since. Patient states he was at work today and moved his right arm in an outwards movement and states shoulder dislocated. Pt. states when he was getting out of his car at the hospital his right shoulder seemed to reduce itself. Ongoing moderate pain. No numbness, tingling. Sxs are mild in severity. No current modifying factors. - History of Current Complaint Chief Complaint: EDShoulderClavicleInj Stated Complaint: RT SHOULDER POPPING IN AND OUT PER PT Time Seen by Provider: 09/29/18 13:31 - Allergies/Home Medications Allergies/Adverse Reactions: Allergies Allergy/AdvReac Type Severity Reaction Status Date / Time No Known Allergies Allergy Verified 09/29/18 12:50 Home Medications: Home Medications NK [No Home Medications Reported] 09/29/18 [History Confirmed 09/29/18] PMH/Surg Hx/FS Hx/Imm Hx Previously Healthy: Yes Endocrine/Hematology History: Denies: Hx Anticoagulant Therapy, Hx Diabetes Cardiovascular History: Denies: Hx Hypertension GI History: Denies: Hx Ileostomy History: Denies: Hx Dialysis Musculoskeletal History: Reports: Hx Orthopedic Injury - torn labrum Sensory History: Denies: Hx Legally Blind, Hx Deafness Opthamlomology History: Denies: Hx Legally Blind Neurological History: Denies: Hx Dementia Psychiatric History: Denies: Hx Schizophrenia - Surgical History Surgery Procedure, Year, and Place: tonsillectomy, labrum repair Hx Anesthesia Reactions: No Infectious Disease History: No Infectious Disease History: Denies: Traveled Outside the [place] in Last 30 Days - Family History Known Family History: Positive: Hypertension, Diabetes, Other - Negative gallbladder issues, Non-Contributory - Social History Occupation: Employed Full-time Lives: With Family Alcohol Use: None Hx Substance Use: No Substance Use Type: Reports: None Hx Tobacco Use: No Smoking Status (MU): Never Smoked Tobacco Review of Systems Positive: Other - right shoulder pain Skin: Negative Neurological: Negative Negative: Weakness, Paresthesia, Numbness All Other Systems Reviewed And Are Negative: Yes Physical Exam Triage Information Reviewed: Yes Vital Signs On Initial Exam: Initial Vitals Temp Pulse Resp BP Pulse Ox 99.6 F 78 16 137/87 97 09/29/18 12:48 09/29/18 12:48 09/29/18 12:48 09/29/18 12:48 09/29/18 12:48 Vital Signs Reviewed: Yes Appearance: Positive: Well-Appearing - Pt. sitting in chair holding his right arm to abd. Skin: Positive: Warm, Dry Head/Face: Positive: Normal Head/Face Inspection Eyes: Positive: Normal, EOMI Neck: Positive: Supple Musculoskeletal: Positive: Other - good left radial pulse. Exam limited secondary to pain. Diffuse tenderness. Neurological: Positive: Normal, CN Intact II-III Psychiatric: Positive: Affect/Mood Appropriate Procedures - Splinting Right Upper Extremity Pre-Made Type: immobilizer Pre-Proc Neuro Vasc Exam: normal Post-Proc Neuro Vasc Exam: normal Diagnostics - Vital Signs Vital Signs Temp Pulse Resp BP Pulse Ox 09/29/18 14:20 98.3 F 64 16 125/64 98 09/29/18 12:48 99.6 F 78 16 137/87 97 - Laboratory Lab Statement: Any lab studies that have been ordered have been reviewed, and results considered in the medical decision making process. Course/Dx - Course Course Of Treatment: Pt. with what sounds like right shoulder dislocation with spontaneous reduction. Xray negative for acute findings per radiology. Shoulder immobilizer placed. Pt. will f.u in ortho. clinic. To ice and tylenol or motrin for pain. Pt. understands and agrees with plan. - Diagnoses Differential Diagnosis/HQI/PQRI: Positive: Fracture (Closed), Strain, Sprain Provider Diagnoses: Shoulder dislocation, recurrent Discharge - Sign-Out/Discharge Documenting (check all that apply): Patient Departure Patient Received Moderate/Deep Sedation with Procedure: No - Discharge Plan Condition: Improved Disposition: HOME Patient Education Materials: Shoulder Dislocation (ED) Forms: *Work Release Referrals: Charli Giron MD [Medical Doctor] - Additional Instructions: Call the orthopedic clinic tomorrow to schedule a follow up appointment Keep immobilizer in place Apply ice Tylenol or Motrin for pain as directed Return to ER if symptoms change or worsen - Billing Disposition and Condition Condition: IMPROVED Disposition: Home
== END 2018-09-29 14:20 | disposition home or self-care (01) ==
LOC: ED 12:46
DX: M24.411 Recurrent dislocation, right shoulder (principal)
CPT/HCPCS: 99281; A9270-GY

== ENCOUNTER 2018-10-19 07:55 | Emergency (ER) | payer OTHER ==
--- NOTE | 2018-10-19 08:17 | ED ---
Upper Extremity Pain - HPI Summary HPI Summary: Patient is a 28-year-old male with a history of recurrent and spontaneous right anterior shoulder dislocations presents to the ED after falling on an outstretched arm incurring another shoulder dislocation. MRI performed yesterday which was positive for hill sachs deformity and obvious recurrent dislocations. First dislocation occurred 8 years ago with subsequent surgery following. Since that time, he has had more dislocations more frequently, most recently 3 weeks ago. He states they typically will relocate spontaneously. He did not attempt to relocate his shoulder this morning. - History of Current Complaint Chief Complaint: EDShouJoselyn Stated Complaint: DISLOCATED SHOULDER PER PT Time Seen by Provider: 10/19/18 08:03 Hx Obtained From: Patient Onset/Duration: Started Hours Ago Timing: Constant Severity Initially: Mild Severity Currently: Mild Pain Location: Shoulder Character: Aching Aggravating Factor(s): Movement, Lifting, Flexion, Extension, Internal/External Rotation Alleviating Factor(s): Rest Associated Signs & Symptoms: Negative: Swelling, Redness, Bruising Related History: Dominant Hand Right - Risk Factors Non-Orthopedic Risk Factor: Negative DVT Risk Factors: Negative Septic Arthritis Risk Factor: Negative Compartment Syndrome Risk Factors: Pain - Allergies/Home Medications Allergies/Adverse Reactions: Allergies Allergy/AdvReac Type Severity Reaction Status Date / Time No Known Allergies Allergy Verified 10/19/18 09:26 PMH/Surg Hx/FS Hx/Imm Hx Previously Healthy: Yes Endocrine/Hematology History: Denies: Hx Anticoagulant Therapy, Hx Diabetes Cardiovascular History: Denies: Hx Hypertension, Hx Pacemaker/ICD GI History: Denies: Hx Ileostomy History: Denies: Hx Dialysis Musculoskeletal History: Reports: Hx Orthopedic Injury - torn labrum Sensory History: Denies: Hx Legally Blind, Hx Deafness, Hx Hearing Aid Opthamlomology History: Denies: Hx Legally Blind Neurological History: Denies: Hx Dementia Psychiatric History: Denies: Hx Panic Disorder, Hx Schizophrenia - Surgical History Surgery Procedure, Year, and Place: tonsillectomy, RT labrum repair Hx Anesthesia Reactions: No - Immunization History Hx Pertussis Vaccination: No Immunizations Up to Date: Yes Infectious Disease History: No Infectious Disease History: Denies: Traveled Outside the [place] in Last 30 Days - Family History Known Family History: Positive: Hypertension, Diabetes, Other - Negative gallbladder issues, Non-Contributory - Social History Occupation: Employed Full-time Lives: With Family Alcohol Use: None Hx Substance Use: No Substance Use Type: Reports: None Hx Tobacco Use: No Smoking Status (MU): Never Smoked Tobacco Review of Systems Constitutional: Negative Negative: Fever, Chills, Fatigue, Skin Diaphoresis Negative: Palpitations, Chest Pain Negative: Shortness Of Breath, Cough Positive: no symptoms reported, see HPI Positive: Arthralgia - R shoulder deformity noted on exam. Negative: Myalgia Neurological: Negative All Other Systems Reviewed And Are Negative: Yes Physical Exam Triage Information Reviewed: Yes Vital Signs On Initial Exam: Initial Vitals Temp Pulse Resp BP Pulse Ox 98.9 F 81 16 148/79 98 10/19/18 07:58 10/19/18 07:58 10/19/18 07:58 10/19/18 07:58 10/19/18 07:58 Vital Signs Reviewed: Yes Appearance: Positive: Well-Appearing, Well-Nourished Skin: Positive: Warm, Skin Color Reflects Adequate Perfusion Neck: Positive: Supple, No Lymphadenopathy Respiratory/Lung Sounds: Positive: Clear to Auscultation, Breath Sounds Present Cardiovascular: Positive: RRR, Pulses are Symmetrical in both Upper and Lower Extremities Musculoskeletal: Positive: Normal, Strength/ROM Intact Neurological: Positive: Speech Normal Psychiatric: Positive: Affect/Mood Appropriate AVPU Assessment: Alert Diagnostics - Vital Signs Vital Signs Temp Pulse Resp BP Pulse Ox 10/19/18 07:58 98.9 F 81 16 148/79 98 - Laboratory Lab Statement: Any lab studies that have been ordered have been reviewed, and results considered in the medical decision making process. Course/Dx - Course Course Of Treatment: During his course of treatment, the patient is evaluated for a right shoulder dislocation. On physical examination, there is a sulcus noted with arm in downward traction. Patient states he has had several dislocations in the past several years. Sometimes they spontaneously will resolve, however this one has not. Traction countertraction without good relief without procedural sedation. Patient states he wanted to try this first to avoid procedural sedation if possible. At this point, Dr. Cox involved to provide ketamine. See separate note. Reduce joint successfully with traction countertraction and shoulder immobilizer given. Post reduction x-rays obtained which showed a relocated shoulder. NV intact. Patient tolerated well, awoke well, eating and drinking, ambulating well and is okay for discharge at this time. - Diagnoses Provider Diagnoses: Recurrent shoulder dislocation Discharge ED - Sign-Out/Discharge Documenting (check all that apply): Patient Departure Patient Received Moderate/Deep Sedation with Procedure: Yes - Discharge Plan Condition: Stable Disposition: HOME Patient Education Materials: Shoulder Dislocation (ED), Procedural Sedation (ED ) Referrals: uJlien Serra MD [Medical Doctor] - No Primary Care Phys,NOPCP [Primary Care Provider] - Additional Instructions: Keep arm in shoulder immobilizer until follow up You may after 3 days start gentle pendulum swings to prevent frozen shoulder - Billing Disposition and Condition Condition: STABLE Disposition: Home
--- OUTSIDE RECORDS SUMMARY | 2018-10-19 08:30 | XMS REPORT | Continuity of Care Document ---
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 Problems Description No Information Available Social History Type Date Description Comments Sex Unknown ETOH Use Denies alcohol use Tobacco Use Start: Unknown Patient has never smoked Smoking Status Reviewed: 10/03/18 Patient has never smoked Exercise Type/Frequency Does not exercise Allergies, Adverse Reactions, Alerts Description No Known Drug Allergies Medications Description No Active Medications Immunizations Description No Information Available Vital Signs Date Vital Result Comment 10/03/2018 11:00am Height 67 inches 5'7" Weight 131.00 lb BP Systolic 120 mmHg BP Diastolic 72 mmHg Respiratory Rate 18 /min Body Temperature 98.1 F Pain Level 7 BMI (Body Mass Index) 20.5 kg/m2 Results Description No Information Available Procedures Description No Information Available Medical Devices Description No Information Available Encounters Description No Information Available Assessments Date Code Description Provider 10/03/2018 M24.411 Recurrent dislocation, right shoulder Charli Giron MD 10/03/2018 M25.511 Pain in right shoulder Charli Giron MD Plan of Treatment 10/03/2018 - Charli Giron MDM24.411 Recurrent dislocation, right shoulderFollow up:Follow up: after MR [id number] Pain in right shoulder Functional Status Description No Information Available Mental Status Description No Information Available Referrals Description No Information Available
[2018-10-19] MEDS ORDERED: Midazolam* 1 MG/ML 5 ML VIAL (5 MG) IV SLOW PU ONE (09:33)
[2018-10-19] MEDS ORDERED: fentaNYL* 50 MCG/ML 2 ML VIAL (100 MCG VIAL) IV SLOW PU ONE (09:34)
[2018-10-19] MEDS ORDERED: Flumazenil* 0.1 MG/ML 5 ML MDV ONE (09:43)
[2018-10-19] MEDS ORDERED: Naloxone* 0.4 MG/ML 1 ML VIAL ONE (09:43)
[2018-10-19] MEDS ORDERED: KETAMINE HCL* 50 MG/ML 10 ML VIAL IV ONE (10:03)
--- NOTE | 2018-10-19 10:42 | ED ---
Progress - Progress Note Progress Note: Shoulder X-Ray: #. Restored alignment at the glenohumeral joint. #. No significant change in magnitude of pre-existing Hill-Sachs impaction fracture compared with October 18, 2018 MRI and September 29, 2018 radiographs. #. Postsurgical change at the glenoid reflecting previous labral repair. #. No new fracture evident. #. Unremarkable soft tissue contours. Course/Dx - Course Course Of Treatment: I was asked to perform procedural sedation on patient for a shoulder reduction. Patient received 60 mg of ketamine. BVM, suction, cardiac monitoring, end-tidal capnography was used during the procedure. Patient had no complications. Patient woke up sedation, tolerated by mouth, and had a safe ride home. - Diagnoses Provider Diagnoses: Recurrent shoulder dislocation Discharge ED - Sign-Out/Discharge Documenting (check all that apply): Patient Departure - discharge Patient Received Moderate/Deep Sedation with Procedure: Yes - Discharge Plan Condition: Stable Disposition: HOME Patient Education Materials: Shoulder Dislocation (ED), Procedural Sedation (ED ) Referrals: Julien Serra MD [Medical Doctor] - No Primary Care Phys,NOPCP [Primary Care Provider] - Additional Instructions: Keep arm in shoulder immobilizer until follow up You may after 3 days start gentle pendulum swings to prevent frozen shoulder - Billing Disposition and Condition Condition: STABLE Disposition: Home - Attestation Statements Document Initiated by Ysabelibe: Yes Documenting Scribe: Bárbara Menchaca Provider For Whom Olmane is Documenting (Include Credential): Dr. Adam Cox Scribe Attestation: Bárbara Wilkerson , scribed for Dr. Adam Cox on 10/19/18 at 2146. Scribe Documentation Reviewed: Yes Provider Attestation: The documentation as recorded by the Bárbara olmstead accurately reflects the service I personally performed and the decisions made by me, Dr. Adam Cox Status of Scribe Document: Viewed Procedure Note: Sedation - Sedation/Analgesia Procedure: procedural sedation for right shoulder reduction Informed Consent Obtained: Yes Equipment in Room: Bag and Mask, Pulse Oximeter, Suction, Sexer Plan for Sedation: Moderate Sedation ASA Classification: I Previous Problem with Sedation: No - Pre-Procedure Exam Airway Exam:: Neck Extenstion: Full, Teeth: Normal - Post Procedure Eval Alert and Oriented: Alert and Oriented x3 Normal Respiratroy Status: Yes Controlled Nausea/Vomiting/Pain: Yes Able to Ambulate/Baseline Mobility: Yes Accompanied by Responsible Adult: Yes Discharge Instructions Given: Yes Rx Given: No Complications: None Reversal Agent Used: None Face to Face Atendance Began at: 10:18 Face to Face Attandanced Ended at: 10:33 Total Sedation/Analgesia Time: Other - 13 Minutes - Comments Additional Comments: 60 mL of Ketamine given
[2018-10-19 11:41] VITALS: BP 136/83
== END 2018-10-19 11:35 | disposition home or self-care (01) ==
LOC: ED 07:55
DX: M24.411 Recurrent dislocation, right shoulder (principal)
CPT/HCPCS: 23650; 99283; J2250; J2310; J3010

== ENCOUNTER → 2018-12-02 06:43 | Day surgery (SDC) | payer OTHER ==
[~2018-12-02 06:43] MED LIST: Atracurium* 10 MG/ML 10 ML VIAL ONE; Buffered Lidocaine 1% SYRIN* 1 ML/SYRINGE INTRADERM ONE; Dexamethasone IV* 4 MG/ML 1 ML (4 MG) IV SLOW PU ONE; Dexamethasone IV* 4 MG/ML 1 ML (4 MG) ONE; DiMENhydriNATE IV* 50 MG/ML VIAL IV PUSH PRN; Famotidine IV* 10 MG/ML 2 ML (20 mg) IV ONE; Famotidine IV* 10 MG/ML 2 ML (20 mg) ONE; Glycopyrrolate IV* 0.2 MG/ML 1 ML VIAL ONE; HYDROmorphone INJ1* 1 MG/ML SYRINGE IV PRN; Ketorolac INJ* 30 MG/ML 1 ML VIAL ONE; Lactated Ringers 1000 ML Bag* 1,000 ML IV SCH; Lidocaine 2% PF * 5 ML VIAL ONE; Midazolam* 1 MG/ML 5 ML VIAL (5 MG) ONE; Naloxone* 0.4 MG/ML 1 ML VIAL IV PRN; Ondansetron INJ* 2 MG/ML VIAL IV PRN; Ondansetron INJ* 2 MG/ML VIAL ONE; Phenylephrine 10 MG/ML VIAL* 1 ML VIAL ONE; Propofol* 10 MG/ML 20 ML BTL ONE; ROPIVACAINE 5 MG/ML 30 ML BTL (0.5%) ONE; ceFAZolin 2 GM PREMIX in ORs 2 GM/50 ML BAG ONE; fentaNYL* 50 MCG/ML 2 ML VIAL (100 MCG VIAL) IV PRN; fentaNYL* 50 MCG/ML 2 ML VIAL (100 MCG VIAL) ONE; oxyCODONE/Acetamin 5/325 MG* TAB PO PRN
[2018-12-02 10:55] VITALS: BP 112/61
--- NOTE | 2018-12-02 16:51 | OP ---
CC: PCP* DATE OF OPERATION: 12/02/18 - [facility] DATE OF : 89 SURGEON: Charli Giron MD DIRECTOR TRADING: PALMER Hughes. An speech pathology assistant was needed for the entirety of the case to help with positioning, retraction, and utilized throughout all portions of the case. ANESTHESIOLOGIST: Dr. Mendez. ANESTHESIA: General interscalene block. 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 OPERATIVE PROCEDURE: Right shoulder arthroscopy with: 1. Extensive glenohumeral debridement including chondroplasty. 2. Removal of previous sutures x2. 3. Revision labral repair. COMPLICATIONS: None. ESTIMATED BLOOD LOSS: Minimal. IMPLANTS USED: 3 Bioraptors by [employer] and one 1.8 mm curved Q-Fix. INDICATIONS: Jorge Luis Wharton is a 28-year-old male who has a history of anterior dislocation of the right shoulder. He has had multiple dislocations, underwent labral repair in 2011. He stated he did well for a while, but has had multiple dislocations this year. He had started noticing 5 episodes of subluxation and then had 2 full dislocations recently. He has instability and pain. He has failed conservative management. He has elected to proceed with surgical treatment. Risks and benefits were discussed at length included but not limited to bleeding; infection; damage to nerves, vessels, surrounding structures; wound nonhealing; persistent pain; need for further surgery; scarring; stiffness; incomplete relief of symptoms; and risks of anesthesia. DESCRIPTION OF PROCEDURE: The patient was greeted in the preoperative area by the attending surgeon. Correct extremity was marked. Consent was confirmed. The patient underwent interscalene nerve block by the anesthesiologist after which he was brought back to the operating suite and placed in the supine position on the operating room table. He then underwent general anesthesia with endotracheal intubation after which he was placed in the left lateral decubitus position with an axillary roll. All bony prominences were padded. He was secured with a peg board. The right arm was draped unsterile with 10 pounds of traction. The right shoulder was then prepped and draped in the usual sterile fashion beginning with chlorhexidine soap, scrub, and alcohol wipe and a final prep with ChloraPrep. The shoulder was completely dislocated and required a manual reduction. After appropriate surgical pause indicating site, side, procedure, administration of antibiotics, the standard posterolateral portal was made sharply with an 11 blade. Scope was introduced into the joint. The joint was examined. There was a small hemarthrosis that was removed. The low anterior portal was made with an 8.25 mm cannula just above the subscap. A second cannula was placed just around the biceps in the superior part of the interval and this was a 5.5 mm cannula for suture shuttling. The 70-degree scope was then used to visualize. He had a positive drive-through sign with a moderate sized Hill-Sachs lesion that did not appear to be on track, but engaged when he was dislocated. The posterior labrum was intact. The superior labrum also had some probably anatomic variant, but there was some mild erythema at the biceps. This was left alone for stability purposes. The undersurface of the rotator cuff was intact. Subscap was intact. There was small amount of chondrosis about the head and the glenoid that was debrided back using a shaver. Attention was directed to the labral repair. The labrum had obviously been displaced medially and scarred. Therefore, the elevators were used to gently elevate and bring the tissue back up. Once the full sheet and sleeve of tissue was then brought back up, it was able to approximated better. The glenoid was then prepared in the usual fashion with a red ball rasp and a double-sided rasp to allow for bony bleeding bed. There was a good blood return. The capsule was also gently rasped as well. The entire capsular sleeve was carefully mobilized and anchor placement began. Beginning at around the 5:30 to 6 o' clock position, the [employer] curved Q-Fix guide was then placed. Beath pin was then drilled and a Q-Fix was placed with excellent purchase. The sutures were then passed in a horizontal mattress configuration. This helped to restore the inferior aspect of the labrum out for an inferior superior capsular shift. This was then tied down using an arthroscopic knot tying technique. As the labrum was being mobilized, there were previous sutures that were present from his previous what appeared to be knotless repair. These were cut and then carefully taken out with care not to harm the labrum or the bone; this did take some time to remove. There were at least 2 that I noted. It was potentially a 2-anchor repair. Next, anchor was a Bioraptor that was drilled and passed with expellent purchase and passed in a similar horizontal mattress configuration. Again, this helped to restore the previous labrum. A second Bioraptor was placed in a horizontal mattress configuration. This also helped to bring back, reapproximate the shoulder. Both the first and second anchor helped eliminate drive-through sign and this was also passed in a horizontal mattress configuration. This anchor was placed at the 5 o'clock. The third anchor was placed at the 4 o'clock position, passed in a horizontal mattress configuration. This again helped to reapproximate the labrum and then decision was made to place the fourth anchor, this was above the 2:30 to 3 o'clock position and was passed in a simple fashion and this helped to secure the labrum. Final images were obtained. The head was found to sit centrally in the glenoid. The drive- through sign was eliminated. The shoulder was reduced. The wounds were then copiously irrigated with sterile saline. The shoulder was thoroughly lavaged to remove any loose debris. Wound was irrigated , portals were closed with 3-0 nylon. Sterile dressings were applied. A Cryo/ Cuff and an UltraSling were applied. He was awoken from anesthesia and transferred to PACU in stable condition. POSTOPERATIVE PLAN: He will be nonweightbearing. He will be in a sling for about 3 to 4 weeks. He will be discharged on pain medications and antibiotics due to revision surgery. He will follow up in 10 to 14 days. We will start him in therapy in about 2 weeks. [id number]/[facility] #: [id number] [facility]
== END | disposition home or self-care (01) ==
LOC: OR 06:43
PROVIDERS: ATTEND Orthopaedic Surgery
DX: M24.411 Recurrent dislocation, right shoulder (principal); M25.511 Pain in right shoulder; J45.909 Unspecified asthma, uncomplicated; G89.18 Other acute postprocedural pain
CPT/HCPCS: J0690; J1100; J1885; J2250; J2405; J2704; J2795; J3010